=== PATIENT | male | born 1975 | race Caucasian/White ===

== ENCOUNTER 2016-05-27 14:24 | Emergency (ER) | payer BC ==
--- NOTE | ~2016-05-27 | CT4 ---
[facility] A Service of [facility] & [facility] RADIOLOGY TEXT RESULTS PATIENT: CHAPO GIRARD LOCATION: [facility] : 73 UNIT #: [id number] AGE: [address]: Samuel Power MD SEX: M ORDER DR: [id number] [facility] [address] [place], [place] [address] [id number] E MR#: [id number] Acc #: [id number] NAME: CHAPO GIRARD : 1975 SEX: M STUDY DATE/TIME: 05/27/2016 15:05 UNIT: CFT[facility] ROOM: STUDY DESCRIPTION: CT Abd and Pelv Wo Cont Attending Physician: Samuel Power M.D. Ordering Physician: Samuel Power M.D. Primary Care Physician: No Primary Care Physician MEDICAL IMAGING REPORT This report is preliminary unless electronic signature is present EXAM CT abdomen and pelvis, 05/27/16 HISTORY Right sided low back pain that started Tuesday. Denies difficulty with urination. TECHNIQUE This CT exam was performed with one or more of the following radiation dose reduction techniques: automatic exposure control, adjustment of mA and/or kV according to patient size, and iterative reconstruction. CT abdomen and pelvis performed without administration of oral or intravascular contrast. COMPARISON STUDIES No prior studies for comparison. No acute disease at lung bases. Healed granulomatous disease at lung bases. Inferior heart and pericardium unremarkable. Liver, gallbladder, pancreas, spleen, adrenal glands unremarkable. No hydronephrosis. No hydroureter. No renal, ureteral or bladder calculi are seen. No secondary signs of recent stone passage. No perinephric inflammatory change. CT pelvis: No inguinal adenopathy. Urinary bladder unremarkable. No pelvic or retroperitoneal adenopathy. Distal esophagus, stomach, small bowel, appendix, colon unremarkable. No abnormal fluid collections. Minimal scattered atherosclerotic arterial calcifications. No aneurysm. Bony structures show no acute abnormality. Mild posterior disk bulges, L3-L4, L4-L5, L5-S1. Findings suggest potentially significant foraminal narrowing at L5-S1, particularly on the right. Exiting right L5 nerve irritation is a [facility] A Service of [facility] & [facility] RADIOLOGY TEXT RESULTS PATIENT: CHAPO GIRARD LOCATION: CFTX : 73 UNIT #: [id number] AGE: [address]: Samuel Power MD SEX: M ORDER DR: consideration. This could best be further evaluated with elective MRI or dedicated lumbar spine CT if the patient is not a candidate for MRI. IMPRESSION 1. No renal calculi or obstruction. No secondary signs of recent stone passage. No perinephric inflammatory change. 2. Gallbladder, pancreas and appendix normal. The remainder of unopacified alimentary canal unremarkable. 3. Mild posterior disk bulges, L3-L4, L4-L5, L5-S1 without significant spinal canal narrowing. Degenerative narrowing of the L5-S1 neural foramina bilaterally, greater on the right than the left, with an appearance raising possibility of exiting right L5 nerve root irritation or impingement. Correlate with the patient's clinical presentation. This is best further evaluated if clinically warranted with elective MRI lumbar spine if the patient is a candidate. If the patient is not a candidate for MRI, then dedicated CT or CT myelography can be considered. Dictated by... Bernardo Ch M.D. THIS IS AN ELECTRONICALLY VERIFIED REPORT Bernardo Ch M.D. at 05/29/2016 8:22 PM Raza TD: 05/27/2016 20:22 JOB #: [id number] MEDICAL IMAGING REPORT COPY
[2016-05-27 14:16] LABS: BASOPHIL# 0.2 X10e3 (0-0.3); BASOPHIL% 2.3 % (0-2.5); EOSINOPHIL# 0.1 X10e3 (0-0.7); EOSINOPHIL% 1.6 % (0.0-7.0); HEMOGLOBIN 15.7 gm/dL (13.0-16.0); LYMPHOCYTE% 27.1 % (17.0-45.0); MEAN CELL VOLUME 88.4 FL (83-96); MEAN CORPUSCULAR HEMOGLOBIN 30.8 PG (28-34); MEAN CORPUSCULAR HGB CONC 34.9 g/dL (30-36); MEAN PLATELET VOLUME 9.5 FL (6.5-11.5); MONOCYTE# 0.7 X10e3 (0-1.0); NEUTROPHIL# 4.3 X10e3 (1.5-7.1); PLATELET COUNT 258 X10e3 (140-420); RED BLOOD COUNT 5.09 X10e (3.90-5.60); RED CELL DISTRIBUTION WIDTH 12.9 % (11.0-15.5); WHITE BLOOD COUNT 7.4 X10e3 (4.0-10.5)
[2016-05-27 14:18] LABS: DIFF IND NO
[2016-05-27 14:34] LABS: URINE SOURCE CLEAN CATCH
[2016-05-27 14:35] LABS: BLOOD UREA NITROGEN 20 mg/dL (9-23); BUN/CREATININE RATIO 22.22; CALCIUM SERUM 9.1 mg/dL (8.4-10.2); CARBON DIOXIDE 23 mmol/L (22-31); CHLORIDE 106 mmol/L (100-111); CREATININE SERUM 0.9 mg/dL (0.6-1.4); GLOM FILT RATE Estimated ABOVE60 mL/min (>60); GLUCOSE FASTING 129 mg/dL (70-110); POTASSIUM 3.6 mmol/L (3.5-5.1); SODIUM 138 mmol/L (135-145)
[2016-05-27 14:41] LABS: URINE APPEARANCE CLEAR; URINE BILIRUBIN NEG (NEG); URINE BLOOD NEG (NEG); URINE COLOR YELLOW; URINE GLUCOSE NEG (NEG); URINE KETONE NEG (NEG); URINE LEUKOCYTE ESTERASE NEG (NEG); URINE NITRATE NEG (NEG); URINE PROTEIN NEG (NEG); URINE SPECIFIC GRAVITY 1.025 (1.003-1.035)
[2016-05-27 14:54] LABS: CULTURE INDICATED? NO
== END 2016-05-27 17:20 | disposition home or self-care (01) ==
LOC: CFTX 14:24
PROVIDERS: Emergency Medicine
DX: M51.27 Other intervertebral disc displacement, lumbosacral region (principal); I10 Essential (primary) hypertension; E78.5 Hyperlipidemia, unspecified; F32.9 Major depressive disorder, single episode, unspecified; F17.210 Nicotine dependence, cigarettes, uncomplicated
CPT/HCPCS: 36415; 74176; 80048; 81003; 85025; 96374; 99284; J1885

== ENCOUNTER 2016-11-27 22:06 | Emergency (ER) | payer BC ==
[~2016-11-27] VITALS: Ht 182.9 cm; Wt 104.3 kg
== END 2016-11-28 00:35 | disposition home or self-care (01) ==
LOC: CED 22:06
DX: R51 Headache (principal); F32.9 Major depressive disorder, single episode, unspecified; F17.210 Nicotine dependence, cigarettes, uncomplicated
CPT/HCPCS: 96374; 96375; 99284; J1200; J1885; J2765